=== PATIENT | male | born 1955 | race Caucasian/White ===

== ENCOUNTER 2024-03-20 01:44 | Emergency (ER) | payer MEDICARE ==
[~2024-03-20] VITALS: Ht 243.8 cm; Wt 88.5 kg
[2024-03-20] MEDS ORDERED: PROBIOTIC & AC1 EACH PO (02:41)
[2024-03-20] MEDS ORDERED: DOXYCYCLINE HY100 MG PO (02:41)
[2024-03-20] MEDS ORDERED: TYLENOL325 MG PO (02:41)
[2024-03-20] MEDS: CEFTRIAXONE 1 GM VIAL IM ONE (03:15)
[2024-03-20 03:16] VITALS: PULSE 70; RESP 17; TEMP 98
[2024-03-20 03:26] VITALS: BP 140/73; O2SAT 98
== END 2024-03-20 03:29 | disposition home or self-care (01) ==
LOC: EDBD 01:53 → FSED 01:53
DX: M79.645 Pain in left finger(s) (principal); T63.391A Toxic effect of venom of other spider, accidental (unintentional), initial encounter; Y92.89 Other specified places as the place of occurrence of the external cause; I10 Essential (primary) hypertension; Z95.1 Presence of aortocoronary bypass graft
CPT/HCPCS: 99283; J0696